=== PATIENT | female | born 1935 | race Caucasian/White ===

== ENCOUNTER 2017-04-02 15:20 | Emergency (ER) | payer OTHER ==
--- NOTE | 2017-04-02 15:31 | PDOC ---
History of Present Illness - General Chief Complaint: Urinary Problem Stated Complaint: UTI Time Seen by Provider: 04/02/17 15:30 - History of Present Illness Initial Comments: 04/02/17 15:30 Ms. Lee is a 81 year old female with a significant past medical history of TB (treated) and UTI's who presents to the emergency department with 1 day history of burning with urination. She says that the urine was cloudy looking and smelled. She denies any other symptoms but says she has had similar symptoms in the past for which she drank cranberry juice and did sitz baths with relief of symptoms. She also endorses a slight subjective fever yesterday she says was 37.2 C (98.9 F) The patient denies chest pain, shortness of breath, headache and dizziness. Denies chills, nausea, vomit, diarrhea and constipation. Denies frequency, urgency and hematuria. Allergies:NKDA Past surgical history:Appendectomy and tonsillectomy Social history:endorses small gin and tonic before dinner PMD - None 04/02/17 15:51 04/02/17 15:59 Past History - Past Medical History Allergies/Adverse Reactions: Allergies Allergy/AdvReac Type Severity Reaction Status Date / Time No Known Allergies Allergy Verified 04/02/17 15:30 Home Medications: Ambulatory Orders Nitrofurantoin Monohyd/M-Cryst [Macrobid -] 100 mg PO BID #14 capsule 04/02/17 Cardiac Disorders: No Diabetes: No HTN: No - Surgical History Appendectomy: Yes - Psycho/Social/Smoking Cessation Hx Anxiety: No Suicidal Ideation: No Smoking History: Never smoked Review of Systems - Review of Systems Comments:: 04/02/17 15:30 GENERAL/CONSTITUTIONAL: No significant fever, no chills. No weakness. HEAD, EYES, EARS, NOSE AND THROAT: No change in vision. No ear pain or discharge. No sore throat. CARDIOVASCULAR: No chest pain or shortness of breath RESPIRATORY: No cough, wheezing, or hemoptysis. GASTROINTESTINAL: No nausea, vomiting, diarrhea or constipation. GENITOURINARY: +Reports pain with urination and that urine is now cloudy and smells funny. No change in frequency. MUSCULOSKELETAL: No joint or muscle swelling or pain. No neck or back pain. SKIN: No rash NEUROLOGIC: No headache, vertigo, loss of consciousness, or change in strength/ sensation. ENDOCRINE: No increased thirst. No abnormal weight change HEMATOLOGIC/LYMPHATIC: No anemia, easy bleeding, or history of blood clots. ALLERGIC/IMMUNOLOGIC: No hives or skin allergy. 04/02/17 15:57 *Physical Exam - Physical Exam Comments: 04/02/17 15:30 GENERAL: Awake, alert, and fully oriented, in no acute distress HEAD: No signs of trauma, normocephalic, atraumatic EYES: PERRLA, EOMI, sclera anicteric, conjunctiva clear ENT: Auricles normal inspection, hearing grossly normal, nares patent, oropharynx clear without exudates. Moist mucosa NECK: Normal ROM, supple, no lymphadenopathy, JVD, or masses LUNGS: No distress, speaks full sentences, clear to auscultation bilaterally HEART: Regular rate and rhythm, normal S1 and S2, no murmurs, rubs or gallops, peripheral pulses normal and equal bilaterally. ABDOMEN: Soft, nontender, normoactive bowel sounds. No guarding, no rebound. No masses. No CVA tenderness, no bladder tenderness. EXTREMITIES: Normal inspection, Normal range of motion, no edema. No clubbing or cyanosis. NEUROLOGICAL: Cranial nerves II through XII grossly intact. Normal speech, normal gait, no focal sensorimotor deficits SKIN: Warm, Dry, normal turgor, no rashes or lesions noted. 04/02/17 16:00 Medical Decision Making - Medical Decision Making 04/02/17 16:01 Patient presents with symptoms of dysuria with cloudy, smelly urine classic of UTI. Patient denies any discharge or itchiness. Denies any vaginal changes. Reports being sexually active with only for 50+ years; does not use/ need any lubrication, etc. Says she has had similar symptoms before that were cured with cranberry juice and sitz baths. UA/urine culture taken to confirm UTI. 04/02/17 16:34 Leukocyte Esterase returned at 3+. Will send macrobid prescription to pharmacy. *DC/Admit/Observation/Transfer Diagnosis at time of Disposition: Urinary tract infection Qualifiers: Urinary tract infection type: site unspecified Hematuria presence: without hematuria Qualified Code(s): N39.0 - Urinary tract infection, site not specified - Discharge Dispostion Disposition: HOME Condition at time of disposition: Good - Prescriptions Prescriptions: Nitrofurantoin Monohyd/M-Cryst [Macrobid -] 100 mg PO BID #14 capsule - Patient Instructions Printed Discharge Instructions: DI for Urinary Tract Infection (UTI) Additional Instructions: Please return if symptoms remain or you have worsening pain or fever. - Attestations Physician Attestion: 04/02/17 16:03 I, Dr. Smith Lagunas, attest that this document has been prepared under my direction and personally reviewed by me in its entirety. I further attest, that it accurately reflects all work, treatment, procedures and medical decision -making performed by me.
[2017-04-02 15:37] LABS: PH,URINE 6.5 (4.5-8); URINE APPEARANCE Clear; URINE BILIRUBIN Negative (NEGATIVE); URINE BLOOD 2+ (NEGATIVE); URINE GLUCOSE (UA) Negative (NEGATIVE); URINE KETONE Negative (NEGATIVE); URINE NITRITE Negative (NEGATIVE); URINE PROTEIN Negative (NEGATIVE); URINE UROBILINOGEN 0.2 (0.2-1.0)
[2017-04-02 15:39] VITALS: BP 163/81; PULSE 65; TEMP 98.1; BMI 30.2
[2017-04-02 15:40] LABS: URINE COLOR YELLOW; URINE LEUK ESTERASE 3+ (NEGATIVE)
--- NOTE | 2017-04-02 15:46 | PDOC ---
Attending Attestation - HPI HPI: The patient is a 81 yo sexually active F with a past medical history significant for TB (treated), appendectomy, tonsillectomy who presents with subjective fever and dysuria since yesterday. The patient notes that her urine is murky and smells. She denies abdominal pain. She denies CVA tenderness. The patient states she has had similar symptoms in the past but did not see a doctor. The patient states shes been for 56 years and her is not experiencing any symptoms. She denies any vaginal discharge or irritation. Patient denies nausea, vomiting and diarrhea. Patient denies chills. Patient denies chest pain, palpitations and lightheadedness. Social Hx: One gin and tonic before dinner every day Allergies: NKDA - Physicial Exam PE: GENERAL: Well developed, well nourished. Awake and alert. No acute distress. No significant fever. Adequate hydration. HEENT: Normocephalic, atraumatic. PERRLA, EOMI. No conjunctival pallor. Sclera are non- icteric. Moist mucous membranes. Oropharynx is clear. NECK: Supple. Full ROM. No JVD. Carotid pulses 2+ and symmetric, without bruits. No thyromegaly. No lymphadenopathy. CARDIOVASCULAR: Regular rate and rhythm. No murmurs, rubs, or gallops. Distal pulses are 2+ and symmetric. PULMONARY: No evidence of respiratory distress. Lungs clear to auscultation bilaterally. No wheezing, rales or rhonchi. ABDOMINAL: Soft. Non-tender. Non-distended. No rebound or guarding. No organomegaly. Normoactive bowel sounds. No distended bladder. MUSCULOSKELETAL Normal range of motion at all joints. No bony deformities or tenderness. No CVA tenderness. EXTREMITIES: No cyanosis. No clubbing. No edema. No calf tenderness. SKIN: Warm and dry. Normal capillary refill. No rashes. No jaundice. NEUROLOGICAL: No gross focal neurological deficits. PSYCHIATRIC: Cooperative. Good eye contact. Appropriate mood and affect. - Medical Decision Making Documentation prepared by Patience Hearn, acting as medical donation professional for Emergency Dept,Physician, /. <Patience Hearn - Last Filed: 04/02/17 16:02> - Resident Resident Name: Smith Lagunas - ED Attending Attestation I have performed the following: I have examined & evaluated the patient, The case was reviewed & discussed with the resident, I agree w/resident's findings & plan, Exceptions are as noted - HPI HPI: 04/02/17 15:58 81-year-old sexually active woman with dysuria for 2 days. Occasional UTIs in the past most recently 3 years ago. Denies vaginal discharge or irritation. is only sexual partner for 56 years. No other significant comorbidities. No back pain no significant fever - Physicial Exam PE: 04/02/17 15:59 Physical exam is unremarkable. No bladder tenderness. No CVA tenderness. No fever. - Medical Decision Making 04/02/17 16:00 Urinalysis and urine culture. Empiric antibiotics. Urology referral as necessary. <Pancho Garcia - Last Filed: 04/02/17 16:41>
[2017-04-02 18:31] LABS: URINE BACTERIA FEW /hpf (NEGATIVE); URINE WBC 20-40 (3-5)
== END 2017-04-02 16:40 | disposition home or self-care (01) ==
LOC: FER 15:20
DX: N39.0 Urinary tract infection, site not specified (principal); Z86.11 Personal history of tuberculosis; Z87.440 Personal history of urinary (tract) infections
CPT/HCPCS: 81003; 81015; 87086; 99282-25